=== PATIENT | female | born 1985 | race Caucasian/White ===

== ENCOUNTER 2021-09-10 07:43 | Inpatient (IN) ==
[2021-09-10] MEDS ORDERED: OXYTOCIN 30 UNITS/500 ML BAG IV PRN ×3 (08:04→17:04)
[2021-09-10 08:36] LABS: Hematocrit (blood only) 33.6 % (37-47); Mean Corpuscular Hemoglobin 27.2 pg (25-34); Mean Corpuscular Hgb Conc 32.7 g/dL (32-36); Mean Platelet Volume 11.8 fL (7.4-10.4); Platelet Count 145 K/uL (130-400); RDW Coefficient of Variation 14.2 % (11.5-14.5); RDW Standard Deviation 43.1 fL (36.4-46.3); Red Blood Count 4.05 M/uL (4.2-5.4); White Blood Count 14.35 K/uL (4.8-10.8)
[2021-09-10] MEDS: LACTATED RINGER'S 1,000 ML IV PRN ×2 (09:01→12:42)
--- NOTE | 2021-09-10 09:25 | History & Physical Report ---
Date of Service September 10, 2021 Assessment & Plan (1) Placenta chorioangioma: (2) Chronic ITP (idiopathic thrombocytopenia): (3) Abnormal genetic test during : Plan: 36 y/o G1 at 39 4/7 wga presents for IOL for abnl cfdna VSS Fetus cat 1 Labor - will start pit ITP - platelets 145 today GBS neg epidural PRN Admission and Anticipated Discharge Date Admission Date: September 10, 2021 History of Present Illness Chief Complaint: IOL Primary Care Provider: NO PCP 36 yo G1 at 39 4/7 wga presents for IOL as recommended by MFM for abnormal cfdna. Had cordoba bulb placed, thinks it is out of cervix but not out of vagina. +FM: denies regular ctx, LOF, VB PNI: ITP - followed by heme, if plt <50, get IVIG 1g/kg, steroids 40mg/d x 4d (IV or PO if she gets discharged before the 4d natty), plt transfusion with goal to 50 abnl cfdna - normal detailed veronika, declined echo and amnio placental chorioangioma maternal SOB - normal echo, ekg Past DENTAL TECH Hx: G1 regular cycles 03/2019 neg cotest declines hx STIs Allergies Allergy/AdvReac Type Severity Reaction Status Date / Time No Known Drug Allergies Allergy Unknown Verified 09/10/21 08:14 Home Medications Medication Instructions Recorded Confirmed Type vitamin #56-iron 35 mg 1 cap PO DAILY #90 cap 01/30/20 09/09/21 Rx and 5 mg-folic acid 1 mg-dha capsule Patient History Medical History Anemia following with PCP and heme/onc per records, receiving iron infusions Chronic ITP (idiopathic thrombocytopenia) follows with CCP heme/onc Depression with anxiety Folate deficiency anemia, unspecified Gastroesophageal reflux during in second trimester, antepartum improving per pt History of chicken pox Idiopathic thrombocytopenic purpura (ITP) Placenta chorioangioma Vitamin B12 deficiency follows with heme/onc Surgical History History of splenectomy History of tonsillectomy History of wisdom tooth extraction Family History Father Myocardial infarction Denies family history of Ovarian cancer Prostate cancer Breast cancer Colorectal cancer Social History Smoking Status: Former smoker Tobacco Type: Cigarettes Age Started Using Tobacco: 25; Age Quit Using Tobacco: 36; packs per day: 1; Smoking End Date: positive preg test; Second Hand Exposure: No; Hx Alcohol Use: No Hx Substance Use: No Preferred Language: Maldivian Communication Ability: Effective Visual Impairment: No Limitations Hearing Ability: Normal Manager Of Regulatory Affairs Required: No Beliefs That Will Affect Care: None marital status: marital status details: Srinivasan Estrella (38) [phone] Current Living Situation: Spouse Current Living Situation Comment: lives with spouse, dogs, cats-spouse to change litter current occupational status: employed current occupation: project manager/design manager Other Information That Helps Us Care for You: No Feels Safe at Home: Yes Safety Concerns: Feels Safe At This Time Dental Care, Regularly: Yes Physical Activity Frequency: 1-2 Times per Week Seatbelt Use: always Assistive Devices: None Physical Exam Genitourinary: OB Exam Abdomen: + vertex (confirmed by US) and + estimated weight (7-8) Manual OB Exam: + cervical dilation 4 cm, + cervical effacement 70% and + station -2 OB Exam Monitor Tracing: + external FHT monitor used, + external uterine monitor used (irreg ctx) and + category I (120/mod/+accel/-decel) Results & Data ([facility]) Vital Signs (Past 12 Hours) Vital Signs Temp Pulse Resp BP 09/10/21 07:53 73 112/74 09/10/21 07:52 97.9 F 73 20 112/74 Laboratory Results OB Labs: Blood Type AB Positive 02/15/21 Antibody Screen NEGATIVE 02/15/21 Hemoglobin 11.9 g/dL (12.0-16.0) L 09/06/21 Hematocrit 36.6 % (37-47) L 09/06/21 Mean Corpuscular Volume 83.9 fL (80-100) 09/06/21 Platelet Count 172 K/uL (130-400) 09/06/21 Rubella IgG Antibody Immune (Immune) 02/15/21 Rapid Plasma Reagin Nonreactive (Nonreactive) 02/15/21 Hepatitis B Surface Antigen Neg (Neg) 02/15/21 HIV (1&2) Ab and P24 Ag, 4th Gener Neg (Neg) 02/15/21 Glucose 1 Hour 50 gm Load 103 mg/dl (70-130) 06/20/21 OB Optional Labs: Chlamydia trachomatis RNA NOT DETECTED (NOT DETECTED) 02/01/21 Neisseria gonorrhoeae RNA NOT DETECTED (NOT DETECTED) 02/01/21 Thyroid Stimulating Hormone (TSH) 1.970 uIu/ml (0.300-4.500) 08/17/20 Labs Reviewed: abnl panorama--akh neg cf/sma--akh GBS neg Diagnostic Findings 08/30 EFW 53%, placental mass 2.7cm, ant plac Coding Level of Care Code None Diagnoses Placenta chorioangioma O43.199; D26.7 Chronic ITP (idiopathic thrombocytopenia) D69.3 Abnormal genetic test during O28.5
[2021-09-10] MEDS ORDERED: fentaNYL citrate 100 MCG/2 ML VIAL ONE (12:17)
[2021-09-10] MEDS ORDERED: ePHEDrine sulfate 50 MG/ML AMP ONE ×2 (12:17→12:20)
[2021-09-10] MEDS ORDERED: SODIUM CHLORIDE 0.9% INJ 10 ML VIAL ONE (12:17)
[2021-09-10] MEDS ORDERED: fentaNYL 2MCG/ML ROPIVACAINE 1.25MG/ML 100 ML BAG EPI ONE (12:18)
[2021-09-10] MEDS ORDERED: BUPIVACAINE 0.25% 30 ML VIAL ONE (12:18)
--- NOTE | 2021-09-10 13:17 | Anesthesiology Consultation ---
Date of Service September 10, 2021 Assessment & Plan Chart Review Chart Review: Acceptable Risk for Labor Epidural Consults Requested none History Height/Weight Height: 5 ft 5 in Weight: 73.482 kg Allergies Allergy/AdvReac Type Severity Reaction Status Date / Time No Known Drug Allergies Allergy Unknown Verified 09/10/21 08:14 Medications Home Medications Medication Instructions Recorded Confirmed Last Taken vitamin #56-iron 35 mg 1 cap PO DAILY #90 cap 01/30/20 09/09/21 Unknown and 5 mg-folic acid 1 mg-dha capsule Active Medications Generic Name Dose Route Start Last Admin Trade Name Freq PRN Reason Stop Dose Admin Lactated Ringer's 1,000 mls @ 125 mls/hr 09/10/21 08:04 09/10/21 13:10 Lr IV 09/12/21 08:03 125 mls/hr .Q8H PRN Infusion L&D Protocol Protocol Oxytocin 30 units in 500 mls @ 10 mls/hr 09/10/21 08:07 09/10/21 11:30 Pitocin IV 09/12/21 08:06 0.6 units/hr .Q24H PRN 10 mls/hr Labor Induction/Augmentation Titration Protocol 0.6 UNITS/HR Past Medical History Medical History Anemia following with PCP and heme/onc per records, receiving iron infusions Chronic ITP (idiopathic thrombocytopenia) follows with CCP heme/onc Depression with anxiety Folate deficiency anemia, unspecified Gastroesophageal reflux during in second trimester, antepartum improving per pt History of chicken pox Idiopathic thrombocytopenic purpura (ITP) Placenta chorioangioma Vitamin B12 deficiency follows with heme/onc Past Family History Family History Father Myocardial infarction Denies family history of Ovarian cancer Prostate cancer Breast cancer Colorectal cancer Past Surgical History Surgical History History of splenectomy History of tonsillectomy History of wisdom tooth extraction Social History Smoking Status: Former smoker tobacco type: cigarettes Smoking End Date: positive preg test Hx Alcohol Use: No Hx Substance Use: No substance use type: does not use Physical Exam Vital Signs Last Vital Signs Temp 36.6 C 09/10/21 07:52 Pulse 64 09/10/21 13:15 Resp 16 09/10/21 10:56 BP 105/65 09/10/21 13:15 Pulse Ox 100 09/10/21 13:15 Testing Laboratory Results 09/10/21 08:21 Blood Type AB Positive 09/10/21 08:21 Antibody Screen NEGATIVE 09/10/21 08:21
[2021-09-10] MEDS ORDERED: ePHEDrine sulfate 50 MG/ML AMP IV PRN (13:21)
[2021-09-10] MEDS ORDERED: NALBUPHINE HCL INJ 10 MG/ML AMP IV PRN (13:21)
[2021-09-10] MEDS ORDERED: NALOXONE HCL 0.4 MG/1 ML VIAL/CARP IV PRN (13:21)
[2021-09-10] MEDS ORDERED: diphenhydrAMINE 50 MG/ML VIAL IV PRN (13:21)
[2021-09-10] MEDS ORDERED: NALOXONE HCL 1 MG in SODIUM CHLORIDE 0.9% 1000ML 1,000 ML IV PRN (13:21)
[2021-09-10] MEDS ORDERED: fentaNYL 2MCG/ML ROPIVACAINE 1.25MG/ML 100 ML BAG EPI PRN (13:21)
--- NOTE | 2021-09-10 14:13 | Labor Progress Brief Note ---
Date of Service September 10, 2021 Subjective comfortable w/ epidural Assessment & Plan (1) Placenta chorioangioma: (2) Chronic ITP (idiopathic thrombocytopenia): (3) Abnormal genetic test during : Plan: 36 y/o G1 at 39 4/7 wga presents for IOL for abnl cfdna VSS Fetus cat 1 Labor - pit at 8, good progression and srom. Continue titration ITP - platelets 145 today GBS neg epidural in place Admission and Anticipated Discharge Date Admission Date: September 10, 2021 Physical Exam Genitourinary: Manual OB Exam: + cervical dilation (5-6), + cervical effacement 90% and + station -1 OB Exam Monitor Tracing: + external FHT monitor used, + external uterine monitor used (q4) and + category I (125/mod/+accel/-decel) Results & Data ([facility]) Vital Signs (Past 12 Hours) Vital Signs Temp Pulse Resp BP Pulse Ox 09/10/21 14:05 57 L 90/65 L 100 09/10/21 14:04 67 81/61 L 09/10/21 14:00 59 L 99 09/10/21 13:59 59 L 84/53 L 09/10/21 13:55 63 97 09/10/21 13:50 59 L 97 09/10/21 13:45 56 L 99 09/10/21 13:44 61 92/55 L 09/10/21 13:40 55 L 97 09/10/21 13:35 53 L 98 09/10/21 13:30 52 L 100 09/10/21 13:28 58 L 105/67 09/10/21 13:25 65 98 09/10/21 13:24 64 102/64 09/10/21 13:20 61 100 09/10/21 13:15 64 105/65 100 09/10/21 13:13 54 L 98/60 L 09/10/21 13:11 57 L 110/66 09/10/21 13:10 59 L 100 09/10/21 13:09 60 110/69 09/10/21 13:07 64 108/67 09/10/21 13:06 64 105/60 09/10/21 13:05 69 100 09/10/21 13:00 73 100 09/10/21 12:55 80 100 09/10/21 12:50 79 100 09/10/21 12:45 83 100 09/10/21 12:40 76 100 09/10/21 12:10 62 124/84 09/10/21 10:56 60 16 99/61 L 09/10/21 07:53 73 112/74 09/10/21 07:52 97.9 F 73 20 112/74 Coding Level of Care Code None Diagnoses Placenta chorioangioma O43.199; D26.7 Chronic ITP (idiopathic thrombocytopenia) D69.3 Abnormal genetic test during O28.5
--- NOTE | 2021-09-10 16:54 | Delivery Summary ---
Vaginal Delivery Summary Date of Service September 10, 2021 Vaginal Delivery Summary and 2nd Degree LAC PREOPERATIVE DIAGNOSIS: 1. Single intrauterine at 39 4/7 wga 2. Abnormal cfDNA 3. Maternal ITP 4. Placenta Chorioangioma POSTOPERATIVE DIAGNOSIS: 1. Single intrauterine at 39 4/7 wga 2. Abnormal cfDNA 3. Maternal ITP 4. Placenta Chorioangioma 5. Delivered PROCEDURE: 1. Normal spontaneous vaginal delivery. SURGEON: Moon Rivera MD ANESTHESIA: Epidural. ESTIMATED BLOOD LOSS: 400 mL FLUIDS: Continuous LR. URINE OUTPUT: None. COMPLICATIONS: None. CONDITION: Stable. INDICATIONS: 36 y/o G1 at 39w4d presented for induction of labor per [facility] recomme ndations due to abnormal cell free DNA during this . Detailed anatomy was wnl however she declined amniocentesis and echo. Placental chorioangioma was also noted but stable throughout and fetus had normal growth scans throughout. Maternal history was complicated by ITP, platelets have remained stable throughout the . Induction was begun with cordoba bulb last evening and removed this morning on admission as it was in the vagina. Pitocin was started and she received an epidural for pain control. She spontaneously ruptured membranes and continued to progress to complete and desired to push FINDINGS: A viable female infant, weight pending with Apgars of 8 and 9 at 1 and 5 minutes respectively. SPECIMEN: cord blood, placenta. OPERATIVE REPORT: The patient progressed to 10 cm, 100% effaced and +2 station, pushed over 4 contractions over intact perineum with anesthesia to deliver a viable female , weight and Apgars as above. Head of delivered in WINSTON position. Tight nuchal cord was delivered through and compound right arm was also noted. Body and shoulders were delivered without difficulty. was delivered to maternal abdomen and nursing staff. Delayed cord clamping was performed for 60 seconds. Cord was clamped and cut. Cord blood was obtained. Placenta delivered spontaneously intact with 3-vessel cord, the noted chorioa ngioma was not obvoius on exam. IV oxytocin and fundal massage were given for excellent hemostasis. Vagina, cervix, perineum were inspected. A second degree laceration was noted and repaired using 3-0 vicryl. There was an area of continued bleeding that was made hemostatic in figure of eight stitch. A hemostatic right labial abrasion was also noted but not needed to be repaired. Sponge and needle counts correct x2. No sponges were left behind. Mother and stable in immediate period. [facility] Vaginal Delivery Charge Vaginal Delivery Codes: 30964 global code for the antepartum, delivery, and post- Delivery Type Details: and 2nd Degree LAC
[2021-09-10] MEDS ORDERED: HYDROCORTISONE ACETATE 25 MG SUPP PR PRN (17:04)
[2021-09-10] MEDS ORDERED: DIPHTHERIA/TETANUS/PERTUSSIS 0.5 ML SYR/VIAL IM ONE (17:04)
[2021-09-10] MEDS ORDERED: ACETAMINOPHEN 325 MG TAB PO PRN (17:04)
[2021-09-10] MEDS ORDERED: BENZOCAINE 20% AER SPR 82.5 GM CAN EXT PRN (17:04)
[2021-09-10] MEDS ORDERED: bisacodyL 10 MG SUPP PR PRN (17:04)
--- NOTE | 2021-09-10 17:58 | Anesthesia Procedure Note ---
Date of Service September 10, 2021 Anesthesia Post Epidural Note Vital Signs Vital Signs: Temp Pulse Resp BP Pulse Ox 36.3 C L 59 L 18 127/77 91 09/10/21 14:29 09/10/21 17:43 09/10/21 14:59 09/10/21 17:43 09/10/21 16:50 Notes Mental Status: alert / awake / arousable Nausea / Vomiting: adequately controlled Pain: adequately controlled Airway Patency, RR, SpO2: stable & adequate BP & HR: stable & adequate Hydration State: stable & adequate Neuraxial Anesthesia: was administered and sensory block is resolving Anesthetic Complications: no major complications apparent and Pt Satisfied with anesthetic care Epidural: Removed without complications and With tip intact
[2021-09-10] MEDS: IBUPROFEN 600 MG TAB PO PRN (18:17)
[2021-09-10] MEDS: DOCUSATE SODIUM 100 MG CAP PO SCH (20:48)
[2021-09-11] MEDS: IBUPROFEN 600 MG TAB PO PRN ×2 (04:43→08:32)
--- NOTE | 2021-09-11 06:44 | Obstetrical Progress Note ---
Date of Service September 11, 2021 Assessment & Plan (1) Encounter for care and examination after delivery: Plan: 36yo PPD 1 s/p at 39 weeks 4 days. -Continue routine care -Vitals reviewed- HDS, afebrile -GBS negative. -Encourage ambulation, regular diet -Pain control with ibuprofen, acetaminophen PRN -Encourage -Hgb 10.1, stable -f/u in 6 weeks with OB after discharge (2) Chronic ITP (idiopathic thrombocytopenia): Plan: -platelet count 144, stable -followed by heme,ifplt <50, get IVIG 1g/kg, steroids 40mg/d x 4d (IV or PO if she gets discharged before the 4d natty), plt transfusion with goal to 50 (3) Placenta chorioangioma: Admission and Anticipated Discharge Date Admission Date: September 10, 2021 Supervising Physician Co-Signing Physician Notes Resident Physician Supervision Note: I interviewed and examined the patient. Discussed with Dr. Diaz and agree with findings and plan as documented in the note. Any exceptions or clarifications are listed here: PP1 s/p , doing well. VSS, exam benign and wnl. Meeting all pp milestones. May desire d/c home later today, ok to do so if desires Documented By: Moon Rivera MD Subjective Ambulation: yes Voiding: yes Passing Gas: yes BM: no Diet Tolerance: regular, denies N/V Lochia:small Feeding Type: Current Pain Level(1-10): 4-5 Review of Systems Review of Systems: Denies fevers/chills. Denies dyspnea, cough. Denies chest pain. Mild laceration site burn when voiding. Denies headache. Denies back pain. Physical Exam Physical Exam: General: Alert, oriented, no acute distress Cardiac: Regular rate and rhythm, normal S1, S2. No murmurs appreciated. Respiratory: Clear to auscultation b/l with good air flow entry, symmetric chest rise and fall. No wheezes or crackles. No increased work of breathing or accessory muscle use Abdomen: Soft, mildly diffuse abdomen, nondistended. Fundus firm and palpable at umbilicus. No guarding or rebound. Skin: No rashes or lesions Extremities: Warm, dry, well-perfused with capillary refill <2s b/l. No lower extremity edema, erythema or swelling. Negative Jenna's sign b/l. Results & Data ([facility]) Vital Signs (Past 12 Hours) Vital Signs Temp Pulse Pulse Resp BP BP Pulse Ox 09/11/21 04:30 36.8 C 65 16 101/65 98 09/10/21 23:24 36.8 C 65 16 110/66 98 09/10/21 20:50 36.8 C 69 18 111/74 98 09/10/21 19:04 36.7 C 63 18 105/68 Resident Activity Tracking Resident Involvement: Resident Care Provided Care Provided: OB Delivery
[2021-09-11 07:07] LABS: Hematocrit (blood only) 30.6 % (37-47); Hemoglobin 10.1 g/dL (12.0-16.0); Mean Corpuscular Hemoglobin 27.5 pg (25-34); Mean Corpuscular Volume 83.4 fL (80-100); Mean Platelet Volume 12.8 fL (7.4-10.4); Platelet Count 144 K/uL (130-400); RDW Coefficient of Variation 14.4 % (11.5-14.5); RDW Standard Deviation 43.8 fL (36.4-46.3); Red Blood Count 3.67 M/uL (4.2-5.4); White Blood Count 19.86 K/uL (4.8-10.8)
[2021-09-11] MEDS ORDERED: FERROUS SULFATE 325 MG TAB PO SCH (08:00)
[2021-09-11] MEDS ORDERED: PRENATAL VITAMIN 1 TAB PO SCH (08:00)
[2021-09-11] MEDS: DOCUSATE SODIUM 100 MG CAP PO SCH (08:32)
[2021-09-11] MEDS ORDERED: DIPHTHERIA/TETANUS/PERTUSSIS 0.5 ML SYR/VIAL IM ONE (17:15)
[2021-09-11] MEDS ORDERED: bisacodyL 5 MG TABEC PO SCH (20:00)
== END 2021-09-11 19:10 | disposition home or self-care (01) | DRG 806 ==
LOC: 4S1 07:43 → 4E2 19:42

== ENCOUNTER 2023-04-16 03:45 | Inpatient (IN) ==
[2023-04-16] MEDS ORDERED: OXYTOCIN 30 UNITS/NSS 30 UNITS/500 ML BAG IV PRN ×2 (04:06→09:41)
[2023-04-16] MEDS ORDERED: LIDOCAINE 1% LOCAL 20 ML VIAL INFIL PRN (04:06)
[2023-04-16] MEDS: LACTATED RINGER'S 1,000 ML IV PRN ×2 (04:11→05:18)
[2023-04-16 05:06] LABS: Hematocrit (blood only) 34.1 % (37.0-47.0); Hemoglobin 11.2 g/dl (12.0-16.0); Mean Corpuscular Hemoglobin 26.4 pg (25.0-34.0); Mean Corpuscular Hgb Conc 32.8 g/dL (32.0-36.0); Mean Corpuscular Volume 80.4 fL (80.0-100.0); Mean Platelet Volume 11.5 fL (9.4-12.4); Platelet Count 267 K/uL (130-400); RDW Coefficient of Variation 15.8 % (11.5-14.5); RDW Standard Deviation 45.7 fL (36.4-46.3); Red Blood Count 4.24 M/uL (4.20-5.40); White Blood Count 12.26 K/ul (4.8-10.8)
[2023-04-16] MEDS ORDERED: ePHEDrine sulfate 50 MG/ML AMP ONE (05:08)
[2023-04-16] MEDS ORDERED: SODIUM CHLORIDE 0.9% PF INJ 10 ML VIAL ONE (05:08)
[2023-04-16] MEDS ORDERED: BUPIVACAINE 0.25% PF 30 ML VIAL ONE (05:08)
[2023-04-16] MEDS ORDERED: LIDOCAINE 2%/EPINEPHRINE 1:200,000 20 ML PF ONE (05:08)
[2023-04-16] MEDS ORDERED: fentaNYL citrate PF 100 MCG/2 ML VIAL ONE (05:08)
[2023-04-16] MEDS ORDERED: fentANYL 2 MCG/ML BUPIVacaine 0.125%-NSS 100ML BAG ONE (05:08)
--- NOTE | 2023-04-16 05:52 | Anesthesiology Consultation ---
Date of Service April 16, 2023 Assessment & Plan Chart Review Chart Review: Acceptable Risk for Labor Epidural Consults Requested none History Height/Weight Height: 5 ft 5 in Weight: 73.028 kg Allergies Allergy/AdvReac Type Severity Reaction Status Date / Time No Known Drug Allergies Allergy nka Verified 04/16/23 04:09 Medications Home Medications Medication Instructions Recorded Confirmed Last Taken prenat.vits,darien,[id number] 1 tab PO DAILY 08/29/22 04/13/23 04/15/23 Active Medications Generic Name Dose Route Start Last Admin Trade Name Freq PRN Reason Stop Dose Admin Lactated Ringer's 1,000 mls @ 125 mls/hr 04/16/23 04:06 04/16/23 05:18 Lr IV 04/18/23 04:05 999 mls/hr .Q8H PRN Administration L&D Protocol Protocol Past Medical History Medical History Anxiety Dyspnea, unspecified Anemia following with PCP and heme/onc per records, receiving iron infusions Gastroesophageal reflux during in second trimester, antepartum improving per pt Placenta chorioangioma Abnormal genetic test during History of chicken pox Chronic ITP (idiopathic thrombocytopenia) follows with CCP heme/onc Vitamin B12 deficiency follows with heme/onc Folate deficiency anemia, unspecified Idiopathic thrombocytopenic purpura (ITP) Depression with anxiety Past Family History Family History Father Myocardial infarction Denies family history of Ovarian cancer Prostate cancer Breast cancer Colorectal cancer Past Surgical History Surgical History History of splenectomy History of tonsillectomy History of wisdom tooth extraction Social History Smoking Status: Former smoker tobacco type: cigarettes Do You Dip or Chew Tobacco: No Smoking End Date: 2020 Hx Alcohol Use: No Hx Substance Use: No substance use type: does not use Physical Exam Vital Signs Last Vital Signs Temp 36.5 C 04/16/23 04:10 Pulse 72 04/16/23 05:50 Resp 18 04/16/23 04:10 BP 109/68 04/16/23 05:50 Pulse Ox 98 04/16/23 05:49 Testing Laboratory Results 04/16/23 04:30
[2023-04-16] MEDS ORDERED: NALOXONE HCL 1 MG in SODIUM CHLORIDE 0.9% 1,000 ML IV PRN (05:59)
[2023-04-16] MEDS ORDERED: fentaNYL citrate PF 100 MCG/2 ML VIAL EPI PRN (05:59)
[2023-04-16] MEDS ORDERED: BUPIVACAINE 0.25% PF 30 ML VIAL EPI PRN (05:59)
[2023-04-16] MEDS ORDERED: LIDOCAINE 2% MPF LOCAL 5 ML VIAL EPI PRN (05:59)
[2023-04-16] MEDS ORDERED: BUPIVACAINE 0.25% PF 30 ML VIAL EPI STA (05:59)
[2023-04-16] MEDS ORDERED: LIDOCAINE 2%/EPINEPHRINE 1:200,000 20 ML PF EPI STA (05:59)
[2023-04-16] MEDS ORDERED: NALOXONE HCL 0.4 MG/1 ML VIAL/CARP IV PRN (05:59)
[2023-04-16] MEDS ORDERED: ePHEDrine sulfate 50 MG/ML AMP IV PRN (05:59)
[2023-04-16] MEDS ORDERED: fentaNYL citrate PF 100 MCG/2 ML VIAL EPI STA (05:59)
[2023-04-16] MEDS ORDERED: SODIUM CHLORIDE 0.9% PF INJ 10 ML VIAL EPI STA (05:59)
[2023-04-16] MEDS ORDERED: diphenhydrAMINE 50 MG/ML VIAL IV PRN (05:59)
[2023-04-16] MEDS ORDERED: fentANYL 2 MCG/ML BUPIVacaine 0.125%-NSS 100ML BAG EPI PRN (05:59)
[2023-04-16] MEDS ORDERED: ROPIVACAINE 0.5% PF 5 MG/ML 20 ML VIAL EPI PRN (05:59)
[2023-04-16] MEDS ORDERED: NALBUPHINE HCL 5 MG in SYRINGE 0 ML IV PRN (05:59)
[2023-04-16] MEDS ORDERED: SODIUM CHLORIDE 0.9% PF INJ 10 ML VIAL EPI PRN (05:59)
[2023-04-16] MEDS ORDERED: SODIUM CHLORIDE 0.65% NA SOLN 45 ML (OCEAN) ONE (06:22)
--- NOTE | 2023-04-16 06:31 | History & Physical Report ---
Date of Service April 16, 2023 Assessment & Plan (1) Elderly multigravida: (2) Chronic ITP (idiopathic thrombocytopenia): Plan 38 yo at 40 4/7 wga presented in labor VSS Fetus cat 1 Labor - good progress noted from admit. Feeling more pain w/ contractions, will get her more comfy then arom gbs neg epidural in place Admission and Anticipated Discharge Date Admission Date: April 16, 2023 History of Present Illness Chief Complaint: ctx Primary Care Provider: NO PCP 38 yo at 40 4/7 wga presents w/ ctx increasing in frequency and intensity. F+M; denies lof, vb PNI: chronic ITP anemia abnormal panorama AMA G1 2021 G2 current denies hx stis Allergies Allergy/AdvReac Type Severity Reaction Status Date / Time No Known Drug Allergies Allergy nka Verified 04/16/23 04:09 Home Medications Medication Instructions Recorded Confirmed Type prenat.vits,darien,xhp-jrer-iliya 1 tab PO DAILY 08/29/22 04/13/23 History Patient History Medical History Anxiety Dyspnea, unspecified Anemia following with PCP and heme/onc per records, receiving iron infusions Gastroesophageal reflux during in second trimester, antepartum improving per pt Placenta chorioangioma Abnormal genetic test during History of chicken pox Chronic ITP (idiopathic thrombocytopenia) follows with CCP heme/onc Vitamin B12 deficiency follows with heme/onc Folate deficiency anemia, unspecified Idiopathic thrombocytopenic purpura (ITP) Depression with anxiety Surgical History History of splenectomy History of tonsillectomy History of wisdom tooth extraction Family History Father Myocardial infarction Denies family history of Ovarian cancer Prostate cancer Breast cancer Colorectal cancer Social History Smoking Status: Former smoker Tobacco Type: Cigarettes Age Started Using Tobacco: 25; Age Quit Using Tobacco: 36; packs per day: 1; Smoking End Date: 2020; Second Hand Exposure: No; Do You Dip or Chew Tobacco: No; Hx Alcohol Use: No Hx Substance Use: No Preferred Language: Luxembourgish Communication Ability: Effective Visual Impairment: No Limitations Hearing Ability: Normal Payment Specialist Required: No Beliefs That Will Affect Care: None marital status: marital status details: Srinivasan Estrella (40) [phone] Current Living Situation: Spouse and Family Current Living Situation Comment: lives with spouse, child, dogs, cats-spouse to change litter current occupational status: employed current occupation: marketing project manager Other Information That Helps Us Care for You: No Feels Safe at Home: Yes Safety Concerns: Feels Safe At This Time Dental Care, Regularly: Yes Physical Activity Frequency: 1-2 Times per Week Seatbelt Use: always Assistive Devices: None Physical Exam Genitourinary: OB Exam Monitor Tracing: + external FHT monitor used, + external uterine monitor used and + category I SVE 3-/-2 by nursing on admit, now /- Results & Data Vital Signs (Past 12 Hours) Vital Signs Temp Pulse Resp BP Pulse Ox 04/16/23 06:24 71 100 04/16/23 06:19 72 100 04/16/23 06:14 18 04/16/23 06:14 18 04/16/23 06:14 100 04/16/23 06:14 71 04/16/23 06:14 82 116/68 04/16/23 06:09 78 99 04/16/23 06:08 77 106/66 04/16/23 06:05 80 114/71 04/16/23 06:04 78 98 04/16/23 05:59 98 04/16/23 05:59 81 04/16/23 05:59 80 108/67 04/16/23 05:55 18 04/16/23 05:55 18 04/16/23 05:54 76 98 04/16/23 05:52 76 105/69 04/16/23 05:50 72 18 109/68 04/16/23 05:49 70 98 04/16/23 05:48 68 113/74 04/16/23 05:47 77 120/76 04/16/23 05:44 72 129/76 97 04/16/23 05:39 95 H 96 04/16/23 05:34 95 H 99 04/16/23 05:29 87 98 04/16/23 05:28 91 H 93 04/16/23 05:24 86 97 04/16/23 05:19 83 99 04/16/23 05:14 93 H 99 04/16/23 04:10 97.7 F 18 04/16/23 03:59 89 135/75 Laboratory Results OB Labs: Blood Type AB Positive 09/10/22 Antibody Screen NEGATIVE 09/10/22 Hemoglobin 10.7 g/dl (12.0-16.0) L 03/04/23 Hematocrit 32.5 % (37.0-47.0) L 03/04/23 Mean Corpuscular Volume 80.6 fL (80.0-100.0) 03/04/23 Platelet Count 211 K/uL (130-400) 03/04/23 Rubella IgG Antibody Non Immune (Immune) L 09/10/22 Rapid Plasma Reagin Nonreactive (Nonreactive) 09/10/22 Hepatitis B Surface Antigen Neg (Neg) 02/15/21 Hepatitis B Surface Antigen. NON-REACTIVE (NON-REACTIVE) 09/10/22 Hepatitis C Antibody Neg (Neg) 02/15/21 Hepatitis C Antibody (EIA) NON-REACTIVE (NON-REACTIVE) 09/10/22 HIV (1&2) Ab and P24 Ag, 4th Gener Neg (Neg) 02/15/21 HIV (1&2) Ag and Ab Confirmation NON-REACTIVE (NON-REACTIVE) 09/10/22 Glucose 1 Hour 50 gm Load 146 mg/dl (70-130) H 01/19/23 Maternal Serum Alpha Fetoprotein 26.0 ng/mL 10/28/22 OB Optional Labs: Chlamydia trachomatis RNA Not Detected (NotDetected) 09/10/22 Neisseria gonorrhoeae RNA Not Detected (NotDetected) 09/10/22 Thyroid Stimulating Hormone (TSH) 1.970 uIu/ml (0.300-4.500) 08/17/20 Alpha Fetoprotein Triple Screen SEE NOTE 10/28/22 Labs Reviewed: cfdna-abnormal finding on sex chromosome--mln gbs neg Coding Level of Care Code None Diagnoses Multigravida of advanced maternal age in third trimester O09.523 Trimester: third trimester Chronic ITP (idiopathic thrombocytopenia) D69.3 (1) Elderly multigravida Trimester: third trimester Qualified Code(s): O09.523 - Supervision of elderly multigravida, third trimester
[2023-04-16] MEDS ORDERED: Nursing to Pharmacy Communication SCH (08:00)
[2023-04-16] MEDS ORDERED: DIPHTHERIA/TETANUS/PERTUSSIS Vaccine (Tdap, Age 7+yrs) 0.5mL SYR/VL IM ONE (09:41)
[2023-04-16] MEDS ORDERED: BENZOCAINE 20% SPRY 85 APPLN/85 GM CAN EXT PRN (09:41)
[2023-04-16] MEDS ORDERED: bisacodyL 10 MG SUPP PR PRN (09:41)
[2023-04-16] MEDS ORDERED: HYDROCORTISONE ACETATE 25 MG SUPP PR PRN (09:41)
--- NOTE | 2023-04-16 09:47 | Delivery Summary ---
Vaginal Delivery Summary Date of Service April 16, 2023 Vaginal Delivery Summary and 2nd Degree LAC Progressed to 10 cm dilated 100% effaced +2-3 station pushed over an intact perineum with epidural anesthesia and delivered a viable female with weight and Apgars pending. Patient pushed over approximately 2 contractions to achieve delivery. Head of the delivered in WINSTON position transition to right transverse. A tight nuchal cord was noted which was able to be reduced. Body and shoulders quickly followed. was noted to be vigorous soon after delivery and a 1 minute delayed cord clamping was initiated. Cord was then double clamped and cut. remained on maternal abdomen. Cord blood obtained. Attention was then turned delivery of placenta which delivered intact with three-vessel cord gentle cord traction. On inspection of perineum vagina and cervix there is noted to be a second-degree perineal laceration which repaired with 3-0 Vicryl in the traditional crown stitch. Needle sponge and instrument counts were correct at the completion of the case. Both mother and stable immediate postdelivery. No complications noted with labor or delivery. Estimated blood loss of 200 mL [facility] Vaginal Delivery Charge Delivery Type Details: and 2nd Degree LAC
--- NOTE | 2023-04-16 12:08 | Anesthesia Procedure Note ---
Date of Service April 16, 2023 Anesthesia Post Epidural Note Vital Signs Vital Signs: Temp Pulse Resp BP Pulse Ox 36.7 C 83 20 127/70 99 04/16/23 11:14 04/16/23 11:53 04/16/23 11:54 04/16/23 11:53 04/16/23 09:14 Pain Intensity Abdomen: Pain Intensity: 0 Notes Mental Status: alert / awake / arousable Nausea / Vomiting: adequately controlled Pain: adequately controlled Airway Patency, RR, SpO2: stable & adequate BP & HR: stable & adequate Hydration State: stable & adequate Neuraxial Anesthesia: was administered and sensory block is resolving Anesthetic Complications: no major complications apparent and Pt Satisfied with anesthetic care Epidural: Removed without complications and With tip intact
[2023-04-16] MEDS: IBUPROFEN 600 MG TAB PO PRN ×2 (13:21→20:41)
[2023-04-16] MEDS: PSEUDOEPHEDRINE HCL 30 MG TAB PO PRN ×2 (14:37→23:41)
[2023-04-16] MEDS: ACETAMINOPHEN 325 MG TAB PO PRN ×2 (16:19→23:40)
[2023-04-16] MEDS: DOCUSATE SODIUM 100 MG CAP PO SCH (20:41)
[2023-04-17] MEDS: IBUPROFEN 600 MG TAB PO PRN ×2 (03:09→07:25)
[2023-04-17 03:40] VITALS: O2SAT 98
--- NOTE | 2023-04-17 07:06 | Obstetrical Progress Note ---
Date of Service April 17, 2023 Assessment & Plan (1) Encounter for assessment: Patient with the above mentioned history and findings was evaluated at bedside and found awake, alert, oriented in all spheres, afebrile, and in no acute distress. Vital signs showed no fever and blood pressures remained stable. Her blood type is AB positive and most recent hemoglobin is adequate at 11.2 g/dL. She is GBS negative and rubella non-immune. Patient offered MMR vaccine but does not want to get it during this admission. She will consider it and re-discuss it with her PCP or in her next OB appointment. Overall, patient is doing well clinically and meeting the desired milestones. Since she is clinically and hemodynamically stable, will discharge today. she was counseled to make an appointment with her OB in 6 weeks for her routine pp evaluation. Discharge instructions discussed. All questions answered. Sheri Thorne is a 38y/o female who is now PPD # 1 following at 40 4/7 weeks. Reports feeling well overall this morning. Refers mild abdominal cramping & 3/10 pain well managed on analgesics. Voiding spontaneously. Has passed flatus but no bowel movements yet. Tolerating meals overnight and able to ambulate some. Some persistent lochia with some improvement this morning. without difficulty. Constitutional: no fever, no chills or no sweats Denies shortness of breath or difficulty breathing Cardiovascular: no chest pain or no palpitations Breast: no breast pain Genitourinary (female): no dysuria Neurologic: no headache(s) Denies changes in vision Physical Exam General: Alert. Oriented to person, time, and place. Afebrile. No acute distress. Eyes: pupils equal and reactive to light bilaterally, extraocular movements intact. Cardiac: Regular rate and rhythm, no murmurs/rubs/gallops. Respiratory: Clear to auscultation bilaterally a/p, no wheezes/rales/rhonchi. No increased work of breathing. Symmetrical chest rise. No respiratory distress. Abdomen: Soft, nontender, nondistended. Bowel sounds present. Uterus: Uterine fundus firm, non-tender, and palpable at umbilicus. Lower Extremities: No lower extremity edema or swelling. No deep calf pain. Jenna's negative bilaterally. Psych: Euthymic affect. Mood and affect congruence. Regular speech rate and content. Results & Data Vital Signs (Past 12 Hours) Vital Signs Temp Pulse Resp BP Pulse Ox O2 Del Method 04/17/23 03:25 36.4 C L 63 18 112/75 98 Room Air 04/16/23 23:30 36.7 C 71 16 113/69 96 Room Air 04/16/23 20:45 36.4 C L 69 18 117/75 97 Room Air
[2023-04-17 07:33] VITALS: BP 113/75; PULSE 70; RESP 16; TEMP 97.3
[2023-04-17] MEDS ORDERED: FERROUS SULFATE 325 MG TAB PO SCH (08:00)
[2023-04-17] MEDS ORDERED: PRENATAL VITAMIN 1 TAB PO SCH (08:00)
[2023-04-17] MEDS: DOCUSATE SODIUM 100 MG CAP PO SCH (08:21)
[2023-04-17] MEDS ORDERED: bisacodyL 5 MG TABEC PO SCH (20:00)
== END 2023-04-17 11:33 | disposition home or self-care (01) | DRG 806 ==
LOC: 4S1 03:45 → 4E2 15:24